=== PATIENT | male | born 1995 | race Caucasian/White ===

== ENCOUNTER 2018-06-24 23:25 | Emergency (ER) | payer OTHER ==
[2018-06-24 23:55] LABS: #Basophils 0.1 thou/uL (0.0-0.2); #Eosinphils 0.2 thou/uL (0.0-0.7); #Lymphocytes 3.4 thou/uL (1.20-3.40); #Monocytes 0.8 thou/uL (0.11-0.59); %Eosinophils 1.7 % (0.0-10.0); %Lymphocytes 32.2 % (21.0-51.0); %Monocytes 7.2 % (0.0-10.0); %Neutrophils 57.9 % (42.0-75.0); Mean Corpuscular HGB CONC 34.6 g/dL (32.0-36.0); Mean Corpuscular Hemoglobin 31.1 pg (27.0-31.0); Mean Corpuscular Volume 89.9 fL (78.0-98.0); Mean Platelet Volume 8.3 fL (7.4-10.4); Platelet Count 237 thou/uL (130-400); RBC Distribution Width 11.2 % (11.5-14.5); Red Blood Cell (RBC) Count 5.15 mill/uL (4.70-6.10); White Blood Cell (WBC) Count 10.4 thou/uL (4.8-10.8)
[2018-06-25 00:17] LABS: ALT (SGPT) 23 U/L (8-55); AST (SGOT) 31 U/L (5-34); Albumin 4.9 g/dL (3.5-5.0); Alkaline Phosphatase 84 U/L (40-150); Anion Gap 18 mmol/L (10-20); BUN (Urea Nitrogen) 18 mg/dL (8.9-20.6); Bilirubin, Total 0.6 mg/dL (0.2-1.2); Calc. Creatinine Clearance 0 mL/min (70-130); Calcium 9.7 mg/dL (7.8-10.44); Carbon Dioxide 24 mmol/L (22-29); Chloride 103 mmol/L (98-107); Estimated GFR-MDRD 72; Globulin 2.7 g/dL (2.4-3.5); Glucose 115 mg/dL (70-105); Potassium 3.7 mmol/L (3.5-5.1); Protein, Total 7.6 g/dL (6.0-8.3); Sodium 141 mmol/L (136-145)
[2018-06-25] MEDS ORDERED: Morphine 4 MG/ML VIAL ONE (01:43)
[2018-06-25] MEDS ORDERED: Ketorolac Tromethamine 30 MG/ML VIAL ONE (01:43)
[2018-06-25 02:02] LABS: Bilirubin Negative (Negative); Blood, Urine Moderate (Negative); Clarity CLOUDY (Clear); Glucose, Urine (Dipstick) Negative (Negative); Leukocyte Negative (Negative); Nitrite Negative (Negative); Protein, Urine (Dipstick) Negative (Neg-Trace); Specific Gravity, Urine 1.018 (1.002-1.036); Urobilinogen 0.2 mg/dL (0.2-1.0); pH, Urine 6.5 (5.0-9.0)
[2018-06-25 02:04] LABS: Bacteria/HPF None Seen HPF (None Seen); Hyaline Casts/LPF 0-3 HYALINE CAST LPF (0-3 Hyaline); Pathc Cast-AUWi Flag 0.14 (0-2.49); RBC/HPF 21-50 HPF (0-3); Squamous Epithelial None Seen HPF (0-3); WBC/HPF None Seen HPF (0-3)
--- NOTE | 2018-06-25 08:44 | CT ---
PRELIMINARY REPORT/[facility]/EMERGENCY AFTER HOURS PROCEDURE: EXAM: CT Abdomen and Pelvis With Intravenous Contrast EXAM DATE/TIME: 06/25/2018 1:29 AM CLINICAL HISTORY: 22 years old, male; Pain; Abdominal pain; Generalized; Patient HX: 22 year old male presents with a 2 day history of left groin pain which abruptly worsened just prior to arrival to ed. The pain was so intense it woke him from sleep. He denies having this pain previously. Patient states his left testic le has looked slightly larger than normal but states he has not noted any difference otherwise. He de nies having any history of hernias or any recent weight lifting. Patient denies any history of crohn' s or uc. TECHNIQUE: Axial computed tomography images of the abdomen and pelvis with intravenous contrast. Coronal reforma tted images were created and reviewed. COMPARISON: No relevant prior studies available. FINDINGS: Lower thorax: No acute findings. ABDOMEN: Liver: No acute findings. Fatty infiltration of the liver. No mass. Gallbladder and bile ducts: The gallbladder is contracted. Pancreas: No acute findings. No ductal dilation. Spleen: No acute findings. No splenomegaly. Adrenals: No acute findings. No mass. Kidneys and ureters: 2-3 mm stone in the left proximal ureter with mild hydronephrosis. Otherwise unr emarkable. No right hydronephrosis. Stomach and bowel: No evidence of bowel obstruction. Diverticulosis. Appendix: No evidence of appendicitis. PELVIS: Bladder: No acute findings. Reproductive: No acute findings. ABDOMEN and PELVIS: Intraperitoneal space: No acute findings. No free air. No significant fluid collection. Bones/joints: No acute fracture. No dislocation. Soft tissues: No acute findings. Vasculature: No acute findings. No abdominal aortic aneurysm. Lymph nodes: No acute findings. No enlarged lymph nodes. IMPRESSION: Left proximal ureteral obstructing stone. Thank you for allowing us to participate in the care of your patient. Dictated and Authenticated by: Jordan Gusman MD 06/25/2018 2:01 AM Central Time ([place] & [place]) FINAL REPORT CT ABDOMEN AND PELVIS: DATE: 06/25/18. TIME: Performed on an emergency basis at 0132 hours. HISTORY: Left abdominal pain. COMPARISON: 09/11/15. FINDINGS: Agree with the preliminary report by Dr. Gusman from [facility]. There is partial obstruction at a 3 mm proximal left ureteral calculus.
--- NOTE | 2018-06-25 08:48 | ULT ---
PRELIMINARY REPORT/[facility]/EMERGENCY AFTER HOURS PROCEDURE: EXAM: US Scrotum US Duplex Arterial/Venous of the Testicles, Complete CLINICAL HISTORY: 22 years old, male; Pain and signs and symptoms; Other: Nausea; Groin pain and scrotum pain; Patient HX: L TECHNIQUE: Real-time ultrasound of the scrotum with color Doppler and image documentation. Real-time duplex ultr asound scan of the arterial and venous flow of the scrotal contents with color Doppler flow and spect ral waveform analysis. COMPARISON: No relevant prior studies available. FINDINGS: Scrotal ultrasound was performed. Duplex ultrasound scan with color Doppler flow and spectral wavefor m analysis was also performed for evaluation of testicular blood flow and to rule out torsion. Right testicle: Few small echogenic foci. Otherwise unremarkable. No acute findings. Normal testicula r blood flow. No evidence of torsion. Left testicle: No acute findings. No mass. Normal blood flow. No evidence of torsion. Epididymides: No acute findings. Bilateral small epididymal cysts. Scrotum: Left varicocele. Bilateral trace hydrocele. IMPRESSION: Left varicocele. Bilateral trace hydrocele. Few small right testicular echogenic foci could relate to calcifications and can be followed. Otherwi se no testicular mass or torsion. Thank you for allowing us to participate in the care of your patient. Dictated and Authenticated by: Jordan Gusman MD 06/25/2018 1:10 AM Central Time ([place] & [place]) FINAL REPORT SCROTAL SONOGRAM WITH DUPLEX EVALUATION: DATE: 06/25/18. TIME: Performed on an emergency basis at 0027 hours. HISTORY: Left groin pain. FINDINGS: Agree with the preliminary report by Dr. Gusman from [facility]. No evidence of testicular mas s or torsion. Left varicocele with minimal bilateral hydrocele.
[2018-06-25] MEDS ORDERED: ISOVUE-370 76%-LOCM 1 ML ONE (11:09)
== END 2018-06-25 02:54 | disposition home or self-care (01) ==
LOC: ERS 23:25
DX: N13.2 Hydronephrosis with renal and ureteral calculous obstruction (principal); I86.1 Scrotal varices; J45.909 Unspecified asthma, uncomplicated
CPT/HCPCS: 74177; 76870; 80053; 81003; 81015; 83605; 85025; 87040; 93976; 96361; 96374; 96375; J1885; J2270

== ENCOUNTER 2018-07-01 10:58 | Outpatient (CLI) | payer OTHER ==
--- NOTE | 2018-07-01 11:50 | RAD ---
AP ABDOMINAL RADIOGRAPH: Date: 07-01-18 History: Kidney stone. Comparison: CT abdomen, 06-25-18. FINDINGS: Previously noted left ureteral calculus seen on CT examination is not appreciated on this exam. No ad ditional suspicious calcifications are seen. Phleboliths are seen in the lateral aspect of the pelvis bilaterally. Bowel gas pattern is overall nonspecific. Osseous structures are intact. Visualized sherry g bases are clear. IMPRESSION: 1. Nonspecific bowel gas pattern. 2. Previously noted left ureteral calculus is not visualized on this exam. POS: GLEN
== END 2018-07-01 10:59 | disposition home or self-care (01) ==
LOC: RAD 10:58
PROVIDERS: ATTEND Urology
DX: N20.0 Calculus of kidney (principal)
CPT/HCPCS: 74018; 81001

== ENCOUNTER 2018-08-03 10:43 | Outpatient (CLI) | payer OTHER ==
--- NOTE | 2018-08-03 12:55 | RAD ---
SINGLE VIEW OF THE ABDOMEN: Comparison: 07-01-18 History: Kidney stone. FINDINGS: Single view of the abdomen shows a nonspecific, nonobstructed bowel gas pattern. No calcifications pr oject over either renal shadow. There are calcifications in the left pelvis which likely represent ph leboliths. IMPRESSION: No evidence of urinary collecting system calcifications. POS: RENNY
== END 2018-08-03 10:44 | disposition home or self-care (01) ==
LOC: RAD 10:43
PROVIDERS: ATTEND Urology
DX: N20.0 Calculus of kidney (principal)
CPT/HCPCS: 74018

== ENCOUNTER 2018-08-04 13:01 | Outpatient (CLI) | payer OTHER ==
[2018-08-04 13:24] LABS: Hemoglobin 15.8 g/dL (14.0-18.0); Mean Corpuscular Hemoglobin 29.6 pg (27.0-31.0); Mean Corpuscular Volume 89.8 fL (78.0-98.0); Mean Platelet Volume 8.3 fL (7.4-10.4); Platelet Count 212 thou/uL (130-400); RBC Distribution Width 11.1 % (11.5-14.5); Red Blood Cell (RBC) Count 5.33 mill/uL (4.70-6.10); White Blood Cell (WBC) Count 6.3 thou/uL (4.8-10.8)
[2018-08-04 13:52] LABS: Anion Gap 10 mmol/L (10-20); BUN (Urea Nitrogen) 12 mg/dL (8.9-20.6); Calc. Creatinine Clearance 0 mL/min (70-130); Calcium 9.8 mg/dL (7.8-10.44); Carbon Dioxide 29 mmol/L (22-29); Chloride 104 mmol/L (98-107); Estimated GFR-MDRD Greater than 90; Glucose 90 mg/dL (70-105); Potassium 4.2 mmol/L (3.5-5.1); Sodium 139 mmol/L (136-145)
== END 2018-08-04 13:02 | disposition home or self-care (01) ==
LOC: LABBT 13:01
PROVIDERS: ATTEND Urology
DX: Z01.812 Encounter for preprocedural laboratory examination (principal); N20.2 Calculus of kidney with calculus of ureter; N23 Unspecified renal colic; I86.1 Scrotal varices
CPT/HCPCS: 80048; 81001; 85027

== ENCOUNTER 2018-08-07 06:09 | Day surgery (SDC) | payer OTHER ==
[2018-08-04 13:24] VITALS: BMI 19.0
[2018-08-07] MEDS ORDERED: CEFAZOLIN 2 GM/50 ML BAG ONE (06:24)
[2018-08-07] MEDS ORDERED: Fentanyl 100 MCG/2 ML VIAL ONE (06:49)
[2018-08-07] MEDS ORDERED: Iothalamate Meglumine 60% 50 ML VIAL FS ONE (07:29)
[2018-08-07] MEDS ORDERED: Midazolam HCl 2 mg/2 ml Vial ONE (07:30)
[2018-08-07] MEDS ORDERED: Meperidine HCl/PF 25 MG/ML VIAL ONE (08:48)
--- NOTE | 2018-08-07 09:20 | OP ---
DATE OF SERVICE: 08/07/2018 PREOPERATIVE DIAGNOSIS: Left ureteral stone. POSTOPERATIVE DIAGNOSIS: Left ureteral stone. PROCEDURE: Cystoscopy, left ureteroscopy, holmium laser lithotripsy, stone basketing, stent placement 6 x 26 with a string. COMPLICATIONS: No complications. ANESTHESIA: General with laryngeal mask airway. FINDINGS: Distal stone, partially impacted, fragmented and removed. SPECIMEN: Stone. DRAIN REMAINING: Was a 6 x 26 double-J with a string. ESTIMATED BLOOD LOSS: Minimal. INDICATIONS: The patient is a 22-year-old male, who was followed by me in the office about a month prior to the procedure and instructed to follow up in 2 weeks to review whether he had passed the stone, he did not. About 2 weeks later, he called with significant discomfort and irritation and was seen in the office the next day, having complaints of significant penile irritation and frequency and urgency. He was not having nausea, vomiting, fever, or chills. No concerns for urinary tract infection. So, at this point, we scheduled his case for 3 days later. TECHNIQUE: The patient was brought into the room by Anesthesia, laid on the table in supine position. After receiving general anesthetic, the legs were placed in lithotomy position with his left leg lowered and right leg elevated and then a 22-Danish cystoscope was used to traverse the urethra, which was normal as was the prostatic urethra. The bladder had no lesions. The right ureteral orifice appeared normal. The left was in normal position, but slightly hyperemic consistent with a stone in the distal ureter. A wire was not able to pass the distal stone. A Glidewire was not able to pass until I used a Pollack catheter for more resistance and then this was able to pass into the renal pelvis. The Pollack catheter followed. The wire was removed. There was no hydronephrotic drip. A retrograde pyelogram was performed. No hydronephrosis was noted. At this point, the regular wire was left in place and a 12-Danish x 6 cm dilating balloon was used to blow up the ureteral orifice to a maximum pressure of 12 mmHg. This was taken back down, the scope broken apart, bladder drained and removed carefully leaving the wire in place and then the rigid ureteroscope was used to go up to the level of the stone that was partially impacted in the wall and the laser fiber was used to push this away and then fragmented into 2 pieces. One was large enough to grab, the other one passed through already, but I sent the larger fragment for specimen and then the ureteroscope was removed and the cystoscope back fed over the wire after retrieving the stone and a 6 x 26 double-J was placed over the wire with good curl visualized in the renal pelvis via fluoroscopy and a good coil visualized in the bladder via cystoscopy. Scope was broken apart carefully. Bladder drained and then removed fully leaving the string intact, which was then secured to the patient's penis. The patient tolerated the procedure well, then awakened, and transferred to PACU in stable condition. OSMAR
== END 2018-08-07 10:15 | disposition home or self-care (01) ==
LOC: SDC 06:09
PROVIDERS: ATTEND Urology
PROC: 0T778DZ Dilation of Left Ureter with Intraluminal Device, Via Natural or Artificial Opening Endoscopic (ICD-10-PCS; principal; 2018-08-07)
PROC: 0TF78ZZ Fragmentation in Left Ureter, Via Natural or Artificial Opening Endoscopic (ICD-10-PCS; principal; 2018-08-07)
DX: N20.1 Calculus of ureter (principal); I86.1 Scrotal varices; J45.909 Unspecified asthma, uncomplicated; Z87.442 Personal history of urinary calculi; Z79.899 Other long term (current) drug therapy; Z91.010 Allergy to peanuts
CPT/HCPCS: 76000; 82365; 88300; 96374; C1758; J2175; J2250; J3010; Q9961